=== PATIENT | female | born 1955 ===

== ENCOUNTER 2017-03-25 09:27 | Day surgery (SDC) | payer BC, MEDICARE ==
[2017-03-10 09:53] VITALS: BMI 29.2
[~2017-03-25 09:27] MED LIST: Lactated Ringer's 1,000 ML IV SCH; Sodium Chloride 0.9% 1,000 ML IV SCH
[2017-03-25] MEDS ORDERED: Propofol 10 mg/ml Inj (20 ML) ONE (10:51)
[2017-03-25] MEDS ORDERED: Albuterol HFA 90 mcg/actuation (8 g) ONE (11:12)
[2017-03-25 14:42] VITALS: BP 122/68; PULSE 85; RESP 16; TEMP 97.5; O2SAT 16
== END 2017-03-25 11:30 | disposition home or self-care (01) ==
LOC: ENDO 09:27
PROVIDERS: ATTEND Internal Medicine Gastroenterology
DX: K31.7 Polyp of stomach and duodenum (principal); K44.9 Diaphragmatic hernia without obstruction or gangrene; K29.50 Unspecified chronic gastritis without bleeding; D12.5 Benign neoplasm of sigmoid colon; K57.30 Diverticulosis of large intestine without perforation or abscess without bleeding; K64.8 Other hemorrhoids; K64.4 Residual hemorrhoidal skin tags; Z85.3 Personal history of malignant neoplasm of breast; K76.0 Fatty (change of) liver, not elsewhere classified; Z90.49 Acquired absence of other specified parts of digestive tract; Z80.41 Family history of malignant neoplasm of ovary; Z80.42 Family history of malignant neoplasm of prostate; J44.9 Chronic obstructive pulmonary disease, unspecified; M81.0 Age-related osteoporosis without current pathological fracture
CPT/HCPCS: 43239; 45380; 45385; 88305; 88312; 88342; J1720; J2001; J2704; J3010; J7040; J7120

== ENCOUNTER 2017-04-07 14:44 | Inpatient (IN) | payer MEDICARE, BC ==
[2017-04-07] MEDS ORDERED: Albuterol-Ipratrop 3 mg / 0.5 (3 ml) UD IH STA (14:54)
--- NOTE | 2017-04-07 15:07 | ED PDOC ---
Arrival/HPI - General Chief Complaint: Shortness Of Breath Time Seen by Provider: 04/07/17 14:53 Historian: Patient - History of Present Illness Time/Duration: < week (x 3 days ) Symptom Onset: Gradual Symptom Course: Unchanged Severity Level: Mild Activities at Onset: Light Context: Sitting, Standing, Walking, Home Past Medical History - Provider Review Nursing Documentation Reviewed: Yes - Infectious Disease Hx of Infectious Diseases: None - Tetanus Immunization Tetanus Immunization: Unknown - Reproductive Menopause: Yes - Cardiac Hx Pacemaker: No - Pulmonary Hx Respiratory Disorders: Yes (COUGH DRY) Hx Asthma: Yes Hx Bronchitis: Yes Hx Chronic Obstructive Pulmonary Disease (COPD): Yes Hx Pneumonia: Yes Other/Comment: breast ca, lung fibrosis - Neurological Hx Paralysis: No - HEENT Hx HEENT Disorder: Yes Hx Cataracts: Yes (BILAT IOL) Hx Deafness: Yes (BILATERAL EARS DECREASED HEARING) - Hematological/Oncological Hx Blood Transfusions: Yes Hx Blood Transfusion Reaction: No - Musculoskeletal/Rheumatological Hx Musculoskeletal Disorders: Yes - Gastrointestinal Hx Gastrointestinal Disorders: Yes Hx Gastroesophageal Reflux: Yes - Psychiatric Hx Physical Abuse: No Hx Substance Use: No - Surgical History Hx Appendectomy: Yes Hx Section: Yes (x2) Hx Cholecystectomy: Yes Hx Joint Replacement: Yes (fatoumata hips) Hx Mastectomy: Yes (L breast mastectomy with reconstruction) Other/Comment: , bladder surgery - Anesthesia Hx Anesthesia Reactions: No - Suicidal Assessment Feels Threatened In Home Enviroment: No Family/Social History - Physician Review Nursing Documentation Reviewed: Yes Family/Social History: No Known Family HX Smoking Status: Never Smoked Hx Alcohol Use: No Hx Substance Use: No Hx Substance Use Treatment: No Allergies/Home Meds Allergies/Adverse Reactions: Allergies No Known Allergies Allergy (Verified 04/07/17 14:55) Home Medications: Home Meds Medication Instructions Recorded Confirmed Montelukast [Singulair] 10 mg PO HS 04/12/15 03/25/17 Albuterol 0.083% [Albuterol 0.083% 3 ml IH Q6 PRN 06/26/15 03/25/17 Inhal Cate (2.5 mg/3 ml) UD] Omeprazole 20 mg PO DAILY 06/26/15 03/25/17 Raloxifene [Evista] 60 mg PO DAILY 06/26/15 03/25/17 Acetylcysteine 20% [Acetylcysteine 20 % INH Q6H 03/10/17 03/25/17 20%] Gabapentin [Neurontin] 100 mg PO TID 03/10/17 03/25/17 Lipase/Protease/Amylase [Zenpep Dr 20,000 units PO DAILY 03/10/17 03/25/17 20,000 Units Capsule] Prednisone [Deltasone] 20 mg PO DAILY 03/10/17 03/25/17 Ipratropium [place] [Ipratropium 2 puff INH Q6H 03/18/17 03/25/17 [place]] Review of Systems - Physician Review All systems were reviewed & negative as marked: Yes - Review of Systems Constitutional: absent: Fevers Respiratory: SOB Cardiovascular: absent: Chest Pain Gastrointestinal: absent: Abdominal Pain Physical Exam Vital Signs Reviewed: Yes Vital Signs Temp Pulse Resp BP Pulse Ox 04/07/17 14:56 100.1 F H 118 H 22 138/68 95 Temperature: Febrile Blood Pressure: Normal Pulse: Tachycardic Respiratory Rate: Normal Appearance: Positive for: Well-Appearing, Non-Toxic, Comfortable Pain Distress: None Mental Status: Positive for: Alert and Oriented X 3 - Systems Exam Head: Present: Atraumatic, Normocephalic Pupils: Present: PERRL Extroacular Muscles: Present: EOMI Conjunctiva: Present: Normal Mouth: Present: Moist Mucous Membranes Neck: Present: Normal Range of Motion Respiratory/Chest: Present: Good Air Exchange, Other (velcro crackles at bases; chronic cough unchanged ). No: Respiratory Distress, Accessory Muscle Use Cardiovascular: Present: Regular Rate and Rhythm, Normal S1, S2. No: Murmurs Abdomen: Present: Normal Bowel Sounds. No: Tenderness, Distention, Peritoneal Signs Back: Present: Normal Inspection Upper Extremity: Present: Normal Inspection. No: Cyanosis, Edema Lower Extremity: Present: Normal Inspection. No: Edema Neurological: Present: GCS=15, CN II-XII Intact, Speech Normal Skin: Present: Warm, Dry, Normal Color. No: Rashes Psychiatric: Present: Alert, Oriented x 3, Normal Insight, Normal Concentration Medical Decision Making ED Course and Treatment: 04/07/17 15:00 Progress Notes: EKG: Ordered, reviewed, and independently interpreted the EKG. Rate : 115 BPM Rhythm : Sinus Tachycardia Interpretation : RBBB; No STEMI. - RAD Interpretation Radiology Orders: 04/07/17 14:54 CHEST PORTABLE [RAD] Stat - Medication Orders Current Medication Orders: Discontinued Medications Albuterol/Ipratropium (Duoneb 3 Mg/0.5 Mg (3 Ml) Ud) 3 ml IH ONCE STA Stop: 04/07/17 14:55 Methylprednisolone (Solu-Medrol) 80 mg IVP STAT STA Stop: 04/07/17 14:55 - Scribe Statement The provider has reviewed the documentation as recorded by the Osorio Ingram Provider Scribe Attestation: All medical record entries made by the Scribe were at my direction and personally dictated by me. I have reviewed the chart and agree that the record accurately reflects my personal performance of the history, physical exam, medical decision making, and the department course for this patient. I have also personally directed, reviewed, and agree with the discharge instructions and disposition. Disposition/Present on Arrival - Present on Arrival History of DVT/PE: No History of Uncontrolled Diabetes: No Urinary Catheter: No History of Decub. Ulcer: No History Surgical Site Infection Following: None - Disposition Forms: [facility] (Kinyarwanda)
[2017-04-07 15:34] LABS: ALB/GLOB RATIO 0.9 (1.1-1.8); ALBUMIN 3.8 g/dL (3.0-4.8); ALT/SGPT 31 U/L (7-56); AST/SGOT 37 U/L (14-36); BLOOD UREA NITROGEN 11 mg/dL (7-21); CALCIUM 9.5 mg/dL (8.4-10.5); GFR AFRICAN-AMERICAN > 60; GFR NON-AFRICAN AMERICAN > 60
[2017-04-07 15:37] LABS: VENOUS BLOOD GAS BASE EXCESS 4.3 mmol/L (0.0-2.0); VENOUS BLOOD GAS PO2 45 mm/Hg (30-55); VENOUS BLOOD PH 7.34 (7.32-7.43)
[2017-04-07 15:45] LABS: BASO # 0.05 K/mm3 (0.0-2.0); BASO % 0.4 % (0.0-3.0); EOS # 0.4 (0.0-0.7); EOS % 3.3 % (1.5-5.0); GRAN # 7.36 (1.4-6.5); GRAN % 57.7 % (50.0-68.0); HEMOGLOBIN 14.2 g/dL (12.0-16.0); LYMPH # 3.5 (1.2-3.4); LYMPH % 27.6 % (22.0-35.0); MEAN CELL VOLUME 88.5 fl (80.0-105.0); MEAN CORPUSCULAR HEMOGLOBIN 29.3 pg (25.0-35.0); MEAN CORPUSCULAR HGB CONC 33.1 g/dl (31.0-37.0); MEAN PLATELET VOLUME 10.2 fl (7.0-11.0); MONO # 1.4 (0.1-0.6); RBC 4.85 10^6/uL (3.5-6.1); RED CELL DISTRIBUTION WIDTH 14.9 % (11.5-14.5); WHITE BLOOD COUNT 12.7 10^3/ul (4.5-11.0)
[2017-04-07 15:52] LABS: B-TYPE NATRIURETIC PEPTIDE 292 pg/mL (0-450); TROPONIN I < 0.01 ng/mL
--- NOTE | 2017-04-07 15:55 | RAD ---
HISTORY: sob COMPARISON: Comparison chest 12/10/2016. FINDINGS: LUNGS: Poor inspiration with low lung volumes, crowded bronchovascular markings and mild bibasilar atelectasis. . Underlying pulmonary fibrosis with areas of bronchiectasis again noted present however the interstitial the changes appear more pronounced ; superimposed pneumonia not excluded. Changes remain more confluent in the lower lung [place] which may in part be due to aforementioned crowded bronchovascular markings and dependent/compressive type atelectasis PLEURA: No significant pleural effusion identified, no pneumothorax apparent. CARDIOVASCULAR: Normal. OSSEOUS STRUCTURES: No significant abnormalities. VISUALIZED UPPER ABDOMEN: Normal. OTHER FINDINGS: None. IMPRESSION: Poor inspiration with low lung volumes, crowded bronchovascular markings and mild bibasilar atelectasis. . Underlying pulmonary fibrosis is present however the interstitial the changes appear more pronounced ; superimposed pneumonia not excluded. Changes remain more confluent in the lower lung [place] which may in part be due to aforementioned crowded bronchovascular markings and dependent/compressive type atelectasis
[2017-04-07] MEDS ORDERED: Piperacill/Tazo 4.5gm in NS 4.5 GM/100 ML BAG IVPB STA (15:56)
[2017-04-07] MEDS ORDERED: Vancomycin 500 mg Inj IVPB STA (15:56)
[2017-04-07] MEDS ORDERED: Vancomycin 1gm in NS 250ml 1 GM/250 ML BAG IVPB STA (16:01)
--- NOTE | 2017-04-07 17:37 | CT ---
PROCEDURE: CT Chest without contrast HISTORY: Shortness of breath and cough. History of fibrosis ; evaluate for pneumonia COMPARISON: None. TECHNIQUE: Contiguous axial images were obtained through the chest without intravenous contrast enhancement. Sagittal and coronal reconstructions were performed. Radiation dose (DLP): 355.1 mGy-cm. This CT exam was performed using one or more of the following dose reduction techniques: Automated exposure control, adjustment of the mA and/or kV according to patient size, and/or use of iterative reconstruction technique. FINDINGS: LUNGS: Demonstrated is extensive diffuse interstitial fibrosis and bronchiectasis most severely affecting the lower lung zones. Scattered nodular opacities again noted . The appearance is relatively stable when compared with the prior exam however the possibility of superimposed interstitial pneumonia cannot be excluded. No large dense focal consolidations are identified. . MEDIASTINUM: Heart size within range of normal. Small pericardial effusion present. The ascending thoracic aorta measures approximately 2.8 cm and descending thoracic aorta measures approximately 2.2 cm. Three-vessel arch. Pulmonary trunk measures approximately 2.6 cm. Multiple mediastinal lymph nodes are present the largest right paratracheal lymph node measuring approximately 15 mm. Central airways are midline and patent. No endobronchial lesions. Small to medium size hiatal hernia with wall thickening of the distal esophagus that could be due to protrusion of gastric mucosa however esophagitis not excluded. . PLEURA: No pleural fluid. No pneumothorax. BONES: Mild multilevel degenerative spondylosis of the thoracic spine. UPPER ABDOMEN: Post cholecystectomy changes. OTHER FINDINGS: None. IMPRESSION: Extensive interstitial fibrosis and bronchiectasis with scattered nodular opacities. The possibility with superimposed pneumonia cannot be excluded on this exam. Overall appearance is relatively stable however.
[2017-04-07] MEDS ORDERED: Albuterol-Ipratrop 3 mg / 0.5 (3 ml) UD IH PRN (17:40)
[2017-04-07] MEDS ORDERED: guaiFENesin 100 mg/5 ml Syrup UD PO PRN (17:41)
[2017-04-07] MEDS: Enoxaparin 40 mg Syringe SC SCH (17:52)
--- NOTE | 2017-04-07 17:57 | CP.PCM.HP ---
<NunnCamron - Last Filed: 04/07/17 18:13> History of Present Illness - History of Present Illness History of Present Illness: 62 year old female with past medical history of pulmonary fibrosis, Breast CA status post left breast mastectomy, chemo, radiation, asthma, COPD, bronchitis, pneumonia presents to the ED because of 2 days of worsening shortness of breath. History was obtained bedside with help of . Patient states she has had a chronic cough for several years but the last 2 days she has experienced worsened cough and shortness of breath. She has been coughing up yellow sputum. Patient states she is able to walk a little bit but the past couple of days she is unable to even make it to the bathroom from her bedroom. She has not taken anything for the cough or shortness of breath but is on oxygen at home. She states she was around her daughter who has had sore throat. Patient states that along with the cough she has pain in her chest. In addition she complains of a runny nose. She denies any nausea, vomiting, diarrhea, recent travel, sore throat, abdominal pain, or any other complaints at this time. PMD: Dr. 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 absent: Chills, Excessive Sweating, Night Sweats - EENT Eyes: absent: Blurred Vision, Change in Vision Ears: absent: Tinnitus, Dizziness Nose/Mouth/Throat: Nasal Discharge. absent: Sore Throat Additional comments: Cough - Cardiovascular Cardiovascular: Dyspnea, Dyspnea on Exertion. absent: Chest Pain at Rest - Respiratory Respiratory: Cough, Dyspnea on Exertion Additional comments: pain when coughing - Gastrointestinal Gastrointestinal: absent: Diarrhea, Nausea, Vomiting - Genitourinary Genitourinary: absent: Difficulty Urinating, Dysuria - Musculoskeletal Musculoskeletal: absent: Joint Swelling - Neurological Neurological: absent: Dizziness, Numbness, Tingling Past Patient History - Infectious Disease Hx of Infectious Diseases: None - Tetanus Immunizations Tetanus Immunization: Unknown - Past Medical History & Family History Past Medical History?: Yes - Past Social History Smoking Status: Never Smoked - CARDIAC Hx Pacemaker: No - PULMONARY Hx Respiratory Disorders: Yes (COUGH DRY) Hx Asthma: Yes Hx Bronchitis: Yes Hx Chronic Obstructive Pulmonary Disease (COPD): Yes Hx Pneumonia: Yes Other/Comment: breast ca, lung fibrosis - NEUROLOGICAL Hx Paralysis: No - HEENT Hx HEENT Problems: Yes Hx Cataracts: Yes (BILAT IOL) Hx Deafness: Yes (BILATERAL EARS DECREASED HEARING) - HEMATOLOGICAL/ONCOLOGICAL Hx Blood Transfusions: Yes Hx Blood Transfusion Reaction: No - MUSCULOSKELETAL/RHEUMATOLOGICAL Hx Musculoskeletal Disorders: Yes - GASTROINTESTINAL Hx Gastrointestinal Disorders: Yes Hx Gastroesophageal Reflux: Yes - PSYCHIATRIC Hx Physical Abuse: No Hx Substance Use: No - SURGICAL HISTORY Hx Appendectomy: Yes Hx Section: Yes (x2) Hx Cholecystectomy: Yes Hx Joint Replacement: Yes (fatoumata hips) Hx Mastectomy: Yes (L breast mastectomy with reconstruction) Other/Comment: , bladder surgery - ANESTHESIA Hx Anesthesia Reactions: No Meds Allergies/Adverse Reactions: Allergies Allergy/AdvReac Type Severity Reaction Status Date / Time No Known Allergies Allergy Verified 04/07/17 14:55 Physical Exam - Constitutional Appears: No Acute Distress Additional comments: fatigued - Head Exam Head Exam: ATRAUMATIC, NORMAL INSPECTION, NORMOCEPHALIC - Eye Exam Eye Exam: EOMI, Normal appearance - ENT Exam ENT Exam: Mucous Membranes Moist, Normal Exam - Neck Exam Neck exam: Negative for: Lymphadenopathy, Tenderness - Respiratory Exam Respiratory Exam: Wheezes - Cardiovascular Exam Cardiovascular Exam: REGULAR RHYTHM, +S1, +S2 - GI/Abdominal Exam GI & Abdominal Exam: Soft. absent: Distended, Tenderness - Extremities Exam Extremities exam: Positive for: normal inspection, pedal pulses present. Negative for: pedal edema - Neurological Exam Neurological exam: Alert, Oriented x3 - Skin Skin Exam: Intact, Normal Color Results - Vital Signs Recent Vital Signs: Last Vital Signs Temp 100.1 F H 04/07/17 14:56 Pulse 104 H 04/07/17 17:36 Resp 18 04/07/17 17:36 BP 126/69 04/07/17 17:36 Pulse Ox 98 04/07/17 17:36 - Labs Result Diagrams: 04/07/17 15:00 04/07/17 15:00 Assessment & Plan - Assessment and Plan (Free Text) Assessment: 62 year old female with past medical history of pulmonary fibrosis, Breast CA status post left breast mastectomy, chemo, radiation, asthma, COPD, bronchitis, pneumonia presents to the ED because of 2 days of worsening shortness of breath. patient admitted and will be treated for Community acquired Pneumonia. Plan: 1. Pneumonia-Comunity Acquired -Chest xray: chronic fibrosis with underlying pneumonia -EKG pending official read -Temp 100.1 -Leukocytosis 12.7 -procalc pending -Rocephin and Azithromycin continue -Rapid Flu negative -Legionella pending -Strept Pneumonia pending -sputum cultures pending -blood cultures pending -Robitussin -continue home oxygen -Pulm consulted- Dr. Carpenter-follow recs 2. Pulmonary Fibrosis/COPD-chronic -continue home oxygen -Pulm consulted- Dr. [id number] recs -Solumedrol given in ED -continue solumedrol 40 BID -continue nebulizers PRN -continue home montelukast, singulair 3. Osteoporosis-chronic -continue home raloxifene 4. GI/DVT Prophylaxis -Lovenox -Protonix <Anabelle Stearns - Last Filed: 04/08/17 14:14> Results - Vital Signs Recent Vital Signs: Last Vital Signs Temp 97.9 F 04/08/17 07:00 Pulse 65 04/08/17 07:00 Resp 20 04/08/17 07:00 BP 103/50 L 04/08/17 07:00 Pulse Ox 100 04/08/17 07:00 - Labs Result Diagrams: 04/08/17 09:50 04/08/17 09:50 Labs: Laboratory Results - last 24 hr 04/07/17 04/08/17 04/08/17 21:07 09:50 09:50 WBC 12.5 H RBC 4.57 Hgb 13.2 Hct 40.0 MCV 87.5 MCH 28.9 MCHC 33.0 RDW 14.2 Plt Count 237 MPV 8.9 Sodium 139 Potassium 4.2 Chloride 106 Carbon Dioxide 24 Anion Gap 13 BUN 14 Creatinine 0.6 L Est GFR ( Amer) > 60 Est GFR (Non-Af Amer) > 60 Random Glucose 252 H Calcium 9.1 Phosphorus 2.7 Magnesium 2.0 Procalcitonin 0.15 L Attending/Attestation - Attestation I have personally seen and examined this patient.: Yes I have fully participated in the care of the patient.: Yes I have reviewed all pertinent clinical information: Yes Notes (Text): I have seen and examined the patient at bedside. Agree with the above note with the following additions/ exceptions: Briefly this is 62 year old female with history of pulmonary fibrosis, Breast CA status post left breast mastectomy, chemo, radiation, asthma, COPD, bronchitis, pneumonia who came for evaluation of shortness of breath, cough, plegm production amd dyspnea on exertion. Patient has leukocytosis. CXR revealed chronic fibrosis with underlying pneumonia. Will do further work up including procal, legionella, strep pneumonia and cultures. Will start rocephin and zithro. CT chest pending. Will consult pulmonary. Continue IV solumedrol. Upon discharge patient will follow up with Dr Patel. Dr Anabelle Stearns
[2017-04-07 18:54] VITALS: BMI 36.9
[2017-04-07] MEDS ORDERED: Influenza Vaccine 60 mcg/0.5 mL SYR (4YR UP) IM ONE (18:55)
[2017-04-07] MEDS ORDERED: Pneumococcal 23-Valent Vaccine IM ONE (18:55)
[2017-04-07] MEDS: Acetylcysteine 20% Inhal Soln (4ml) INH SCH (20:06)
[2017-04-07] MEDS: Ipratropium 0.02% Inhal Soln (0.5 mg/2.5 ml) UD IH SCH (20:36)
[2017-04-07] MEDS: cefTRIAXone 2 GM IN NS 2 GM/100 ML BAG IVPB SCH (21:27)
[2017-04-07] MEDS: Azithromycin 500MG/NS 250ml 500 MG/250 ML BAG IVPB SCH (21:28)
[2017-04-08] MEDS: Acetylcysteine 20% Inhal Soln (4ml) INH SCH ×4 (01:28→20:15)
[2017-04-08] MEDS: MethylPREDNISolone 40 mg Vial IVP SCH ×3 (06:39→22:33)
[2017-04-08] MEDS: Pantoprazole 40 mg EC Tab PO SCH (06:39)
[2017-04-08] MEDS: Ipratropium 0.02% Inhal Soln (0.5 mg/2.5 ml) UD IH SCH ×3 (07:16→20:15)
[2017-04-08] MEDS: cefTRIAXone 2 GM IN NS 2 GM/100 ML BAG IVPB SCH (09:46)
[2017-04-08] MEDS: Enoxaparin 40 mg Syringe SC SCH (09:47)
[2017-04-08] MEDS: PROTEASE PO SCH (09:48)
[2017-04-08] MEDS: AMYLASE PO SCH (09:48)
[2017-04-08] MEDS: LIPASE PO SCH (09:48)
[2017-04-08] MEDS: [UNRECOGNIZED DRUG - OTHER] PO SCH (09:48)
--- NOTE | 2017-04-08 09:53 | CARD ---
APPROVED REPORT EKG Measurement Heart [id number] <Conclusion> Sinus tachycardia Right bundle branch block Abnormal ECG
[2017-04-08 10:00] LABS: HEMOGLOBIN 13.2 g/dL (12.0-16.0); MEAN CELL VOLUME 87.5 fl (80.0-105.0); MEAN CORPUSCULAR HEMOGLOBIN 28.9 pg (25.0-35.0); MEAN PLATELET VOLUME 8.9 fl (7.0-11.0); RBC 4.57 10^6/uL (3.5-6.1); RED CELL DISTRIBUTION WIDTH 14.2 % (11.5-14.5); WHITE BLOOD COUNT 12.5 10^3/ul (4.5-11.0)
[2017-04-08 10:22] LABS: BLOOD UREA NITROGEN 14 mg/dL (7-21)
[2017-04-08 10:23] LABS: CALCIUM 9.1 mg/dL (8.4-10.5); GFR AFRICAN-AMERICAN > 60; GFR NON-AFRICAN AMERICAN > 60
[2017-04-08] MEDS: Azithromycin 500MG/NS 250ml 500 MG/250 ML BAG IVPB SCH (10:53)
[2017-04-09] MEDS: Acetylcysteine 20% Inhal Soln (4ml) INH SCH ×3 (02:21→13:27)
[2017-04-09] MEDS: Ipratropium 0.02% Inhal Soln (0.5 mg/2.5 ml) UD IH SCH ×3 (02:22→13:27)
--- NOTE | 2017-04-09 03:11 | CON ---
DATE: 04/08/2017 PULMONARY CONSULTATION REFERRING PHYSICIAN: Anabelle Stearns MD REASON FOR CONSULTATION: Cough, shortness of breath, and chronic lung disease. HISTORY OF PRESENT ILLNESS: This is a 62-year-old female with known history of interstitial lung disease, pulmonary fibrosis, history of breast cancer, and left breast lumpectomy and been on chemoradiation therapy in the past. She does have a chronic obstructive lung disease, came into Emergency Room with cough and shortness of breath. No hemoptysis or emesis. No hematuria. No diarrhea reported. PAST MEDICAL HISTORY: Chronic obstructive lung disease, history of pulmonary fibrosis, breast cancer, history of mastectomy. Has also been on chemo and breast radiation therapy. She also had sleep apnea syndrome. ALLERGIES: NONE KNOWN. SOCIAL HISTORY: No smoking or alcohol use. FAMILY HISTORY: No significant cardiopulmonary disease reported. MEDICATIONS: She is on Mucomyst 20% inhaled q. 6 hours., Atrovent 0.5 mg q. 6 hours. and Evista 60 mg daily. Also getting lipase/pancreas 20,000 units daily, Lovenox 40 mg daily, Neurontin 100 mg three times a day, Protonix 40 mg daily, guaifenesin 100 mg q. 4 hours. p.r.n., Rocephin 2 grams daily, Singulair 10 mg daily, Solu-Medrol 40 mg q. 12 hours. and Zithromax 500 mg daily. REVIEW OF SYSTEMS: No headache and no rhinitis. Has a cough, sputum production, and short of breath. No nausea, no vomiting, and no diarrhea. No leg pain or leg swelling. PHYSICAL EXAMINATION: GENERAL: Lying in the bed, in no acute distress. VITAL SIGNS: Temperature is 98, heart rate is 65, respiratory rate is 20, blood pressure is 103/50, and pulse oximetry of 100% on 2 liters nasal cannula. HEENT: Moist mucous membranes. Crowded airway. NECK: Supple. No JVD. LUNGS: Have bilateral crackles and wheezing. HEART: S1 and S2. GASTROINTESTINAL: Abdomen is soft and nontender. No organomegaly. EXTREMITIES: There is no edema. NEUROLOGIC: Awake, alert and follows simple command. LABORATORY DATA: Shows hemoglobin of 13.2, hematocrit of 40.0, WBC of 12.2, and platelet is 237. ABG done yesterday shows pH of 7.34, pCO2 of 59 and O2 of 45. Sodium of 139, potassium of 4.2, chloride of 106, bicarbonate of 24, BUN of 14, and creatinine of 0.6. Glucose is 252, calcium is 9.1, phosphorus is 2.7, magnesium is 2.0, and procalcitonin is 0.15. Influenza A and B been negative. DIAGNOSTIC DATA: CAT scan of the chest done today that shows extensive interstitial fibrosis with bronchiectasis and scattered nodular obesity, pneumonia cannot be ruled out. IMPRESSION AND PLAN: She has a chronic obstructive lung disease, sleep apnea syndrome, history of breast cancer in the past and have a radiation and chemotherapy, so, part of the damage to the lung probably is secondary to radiation therapy in the remote past. We will continue IV and inhaled bronchodilator. Continue antibiotics. May add a continuous positive airway pressure, gastric and deep venous thrombosis prophylaxis. Aspiration precaution. Thank you and we will follow with you. Sav Carpenter MD
[2017-04-09] MEDS: Pantoprazole 40 mg EC Tab PO SCH (06:18)
--- NOTE | 2017-04-09 06:37 | CP.PCM.PN ---
Subjective - Date & Time of Evaluation Date of Evaluation: 04/09/17 Time of Evaluation: 06:40 - Subjective Subjective: Patient seen and examined at bedside in no acute distress. Patient states shortness of breath has resolved and has no complaints at this time. Denies shortness of breath, palpitations, chest pain, abdominal pain, nausea, vomiting , diarrhea. Objective - Vital Signs/Intake and Output Vital Signs (last 24 hours): Temp Pulse Resp BP Pulse Ox 97.9 F 65 20 103/50 L 100 04/08/17 07:00 04/08/17 07:00 04/08/17 07:00 04/08/17 07:00 04/08/17 07:00 Intake and Output: 04/08/17 04/09/17 18:59 06:59 Intake Total 360 Balance 360 - Medications Medications: Current Medications Acetylcysteine (Acetylcysteine 20%) 2 ml INH [id number] [facility] Last Admin: 04/09/17 02:21 Dose: 2 ml Enoxaparin Sodium (Lovenox) 40 mg SC DAILY [facility] PRN Reason: Protocol Last Admin: 04/08/17 09:47 Dose: 40 mg Gabapentin (Neurontin) 100 mg PO TID [facility] PRN Reason: Protocol Last Admin: 04/08/17 17:06 Dose: 100 mg Guaifenesin (Robitussin) 100 mg PO Q4H PRN PRN Reason: Cough Ceftriaxone Sodium (Rocephin 2 Gm Ivpb) 2 gm in 100 mls @ 100 mls/hr IVPB DAILY [facility] PRN Reason: Protocol Last Admin: 04/08/17 09:46 Dose: 100 mls/hr Azithromycin (Zithromax 500mg In Ns) 500 mg in 250 mls @ 167 mls/hr IVPB DAILY [facility] PRN Reason: Protocol Last Admin: 04/08/17 10:53 Dose: 167 mls/hr Ipratropium [place] (Atrovent) 0.5 mg IH [id number] [facility] Last Admin: 04/09/17 02:22 Dose: 0.5 mg Methylprednisolone (Solu-Medrol) 40 mg IVP Q12 [facility] Last Admin: 04/08/17 22:33 Dose: 40 mg Montelukast Sodium (Singulair) 10 mg PO HS [facility] Last Admin: 04/08/17 22:33 Dose: 10 mg Non-Formulary Medication (Lipase/Protease/Amylase [Nica Dr 20,000 Unit Capsule ]) 20,000 units PO DAILY [facility] Last Admin: 04/08/17 09:48 Dose: Not Given Pantoprazole Sodium (Protonix Ec Tab) 40 mg PO 0600 [facility] Last Admin: 04/09/17 06:18 Dose: 40 mg Raloxifene HCl (Evista) 60 mg PO DAILY [facility] Last Admin: 04/08/17 09:47 Dose: 60 mg Zolpidem Tartrate (Ambien) 5 mg PO HS PRN; Protocol PRN Reason: Insomnia - Labs Labs: 04/08/17 09:50 04/08/17 09:50 - Constitutional Appears: Non-toxic, No Acute Distress - Head Exam Head Exam: ATRAUMATIC, NORMAL INSPECTION, NORMOCEPHALIC - Eye Exam Eye Exam: EOMI, Normal appearance - ENT Exam ENT Exam: Mucous Membranes Moist, Normal Exam - Respiratory Exam Respiratory Exam: Wheezes, NORMAL BREATHING PATTERN - Cardiovascular Exam Cardiovascular Exam: REGULAR RHYTHM, +S1, +S2 - GI/Abdominal Exam GI & Abdominal Exam: Soft, Normal Bowel Sounds - Neurological Exam Neurological Exam: Alert, Awake, Oriented x3 - Psychiatric Exam Psychiatric exam: Normal Affect, Normal Mood - Skin Skin Exam: Intact, Normal Color, Warm Assessment and Plan - Assessment and Plan (Free Text) Assessment: 62 year old female with past medical history of pulmonary fibrosis, Breast CA status post left breast mastectomy, chemo, radiation, asthma, COPD, bronchitis, pneumonia presents to the ED because of 2 days of worsening shortness of breath. Patient admitted and will be treated for Community acquired Pneumonia. Plan: 1. Pneumonia-Comunity Acquired -Chest xray: chronic fibrosis with underlying pneumonia -Temp 100.1 upon admission, afebrile 24 hours -Leukocytosis 12.7 initially, now 12.5 -procalcitonin 0.15 -Rocephin and Azithromycin continue -Rapid Flu negative -Legionella pending -Strept Pneumonia pending -sputum cultures pending -blood cultures; no growth after 24 hours -Robitussin -continue home oxygen -Pulm consulted- Dr. Carpenter; follow recommendations 2. Pulmonary Fibrosis/COPD-chronic -continue home oxygen -Pulm consulted- Dr. Carpenter; follow recommendations -Solumedrol given in ED -continue solumedrol 40 BID -continue nebulizers PRN -continue home montelukast, singulair 3. Osteoporosis-chronic -continue home raloxifene 4. GI/DVT Prophylaxis -Lovenox -Protonix
[2017-04-09 07:41] LABS: BASO # 0.01 K/mm3 (0.0-2.0); BASO % 0.1 % (0.0-3.0); GRAN # 11.47 (1.4-6.5); GRAN % 79.8 % (50.0-68.0); HEMOGLOBIN 13.4 g/dL (12.0-16.0); LYMPH # 2.2 (1.2-3.4); LYMPH % 15.4 % (22.0-35.0); MEAN CELL VOLUME 88.1 fl (80.0-105.0); MEAN CORPUSCULAR HEMOGLOBIN 28.5 pg (25.0-35.0); MEAN CORPUSCULAR HGB CONC 32.4 g/dl (31.0-37.0); MONO # 0.7 (0.1-0.6); MONO % 4.7 % (1.0-6.0); RBC 4.7 10^6/uL (3.5-6.1); RED CELL DISTRIBUTION WIDTH 14.1 % (11.5-14.5); WHITE BLOOD COUNT 14.4 10^3/ul (4.5-11.0)
[2017-04-09 07:51] LABS: ALB/GLOB RATIO 0.9 (1.1-1.8); ALBUMIN 3.6 g/dL (3.0-4.8); ALT/SGPT 22 U/L (7-56); AST/SGOT 27 U/L (14-36); BLOOD UREA NITROGEN 13 mg/dL (7-21); CALCIUM 9.3 mg/dL (8.4-10.5); GFR AFRICAN-AMERICAN > 60; GFR NON-AFRICAN AMERICAN > 60
[2017-04-09 08:01] VITALS: O2SAT 95
[2017-04-09] MEDS: MethylPREDNISolone 40 mg Vial IVP SCH (09:13)
[2017-04-09] MEDS: cefTRIAXone 2 GM IN NS 2 GM/100 ML BAG IVPB SCH (09:13)
[2017-04-09] MEDS: AMYLASE PO SCH (09:14)
[2017-04-09] MEDS: [UNRECOGNIZED DRUG - OTHER] PO SCH (09:14)
[2017-04-09] MEDS: PROTEASE PO SCH (09:14)
[2017-04-09] MEDS: Enoxaparin 40 mg Syringe SC SCH (09:14)
[2017-04-09] MEDS: LIPASE PO SCH (09:14)
[2017-04-09] MEDS: Azithromycin 500MG/NS 250ml 500 MG/250 ML BAG IVPB SCH (09:56)
--- NOTE | 2017-04-09 16:32 | IP.NPCORE ---
Pneumonia Progress Notes - Oxygenation Assessment (REQUIRED) O2 Saturation: 95 Oxygen Delivery Method: Room Air Date: 04/09/17 Documented P02: No - Blood Cultures (REQUIRED) Culture drawn: Yes Date:: 04/07/17 Time:: 21:00 - Initial Antibiotic Initial Antibiotic given within Four Hours:: Yes Date:: 04/07/17 Time:: 15:55 - Appropriate Antibiotic Appropriate Antibiotic within 24 hours of Admission:: Yes Date:: 04/07/17 Current Antibiotic: Rocephin 2 gm IV daily - Pneumonia Vaccine Pneumonia Vaccine: No (patient refused) - Smoking Cessation Smoking Cessation counseling provided:: No Ex-Smoker (has not smoked in the last 12 months): No Current Smoker - smoking cessation education provided: No
[2017-04-09 17:08] VITALS: BP 140/75; PULSE 92; RESP 16; TEMP 98
--- NOTE | 2017-04-09 19:48 | CP.PCM.DIS ---
Provider - Provider Date of Admission: 04/07/17 16:12 Attending physician: Anabelle Stearns MD Hospital Course - Lab Results Lab Results: Micro Results 04/07/17 21:07 Blood-Venous Blood Culture - Preliminary NO GROWTH AFTER 24 HOURS 04/07/17 21:07 Blood-Venous Blood Culture - Preliminary NO GROWTH AFTER 24 HOURS Most Recent Lab Values WBC 14.4 10^3/ul (4.5-11.0) H 04/09/17 07:10 RBC 4.70 10^6/uL (3.5-6.1) 04/09/17 07:10 Hgb 13.4 g/dL (12.0-16.0) 04/09/17 07:10 Hct 41.4 % (36.0-48.0) 04/09/17 07:10 MCV 88.1 fl (80.0-105.0) 04/09/17 07:10 MCH 28.5 pg (25.0-35.0) 04/09/17 07:10 MCHC 32.4 g/dl (31.0-37.0) 04/09/17 07:10 RDW 14.1 % (11.5-14.5) 04/09/17 07:10 Plt Count 253 10^3/uL (120.0-450.0) 04/09/17 07:10 MPV 9.0 fl (7.0-11.0) 04/09/17 07:10 Gran % 79.8 % (50.0-68.0) H 04/09/17 07:10 Lymph % (Auto) 15.4 % (22.0-35.0) L 04/09/17 07:10 [place] % (Auto) 4.7 % (1.0-6.0) 04/09/17 07:10 Eos % (Auto) 0.0 % (1.5-5.0) L 04/09/17 07:10 Baso % (Auto) 0.1 % (0.0-3.0) 04/09/17 07:10 Gran # 11.47 (1.4-6.5) H 04/09/17 07:10 Lymph # 2.2 (1.2-3.4) 04/09/17 07:10 [place] # 0.7 (0.1-0.6) H 04/09/17 07:10 Eos # 0.0 (0.0-0.7) 04/09/17 07:10 Baso # 0.01 K/mm3 (0.0-2.0) 04/09/17 07:10 pO2 45 mm/Hg (30-55) 04/07/17 15:00 VBG pH 7.34 (7.32-7.43) 04/07/17 15:00 VBG pCO2 59.0 (40-60) 04/07/17 15:00 VBG HCO3 31.8 mmol/l (21-28) H 04/07/17 15:00 VBG Total CO2 33.6 mmol.L (22-28) H 04/07/17 15:00 VBG O2 Sat (Calc) 87.3 % (40-65) H 04/07/17 15:00 VBG Base Excess 4.3 mmol/L (0.0-2.0) H 04/07/17 15:00 VBG Potassium 5.8 mmol/L (3.6-5.2) H 04/07/17 15:00 Sodium 137.0 mmol/L (132-148) 04/07/17 15:00 Chloride 103.0 mmol/L (98-107) 04/07/17 15:00 Glucose 94 mg/dl (65-105) 04/07/17 15:00 Lactate 1.4 mmol/L (0.7-2.1) 04/07/17 15:00 FiO2 21.0 % 04/07/17 15:00 Sodium 142 mmol/L (132-148) 04/09/17 07:10 Potassium 4.5 mmol/L (3.6-5.0) 04/09/17 07:10 Chloride 107 mmol/L (98-107) 04/09/17 07:10 Carbon Dioxide 28 mmol/L (21-33) 04/09/17 07:10 Anion Gap 12 (10-20) 04/09/17 07:10 BUN 13 mg/dL (7-21) 04/09/17 07:10 Creatinine 0.6 mg/dl (0.7-1.2) L 04/09/17 07:10 Est GFR ( Amer) > 60 04/09/17 07:10 Est GFR (Non-Af Amer) > 60 04/09/17 07:10 Random Glucose 143 mg/dL (70-110) H 04/09/17 07:10 Calcium 9.3 mg/dL (8.4-10.5) 04/09/17 07:10 Phosphorus 2.7 mg/dL (2.5-4.5) 04/08/17 09:50 Magnesium 2.0 mg/dL (1.7-2.2) 04/08/17 09:50 Total Bilirubin 0.2 mg/dL (0.2-1.3) 04/09/17 07:10 AST 27 U/L (14-36) 04/09/17 07:10 ALT 22 U/L (7-56) 04/09/17 07:10 Alkaline Phosphatase 79 U/L (38-126) 04/09/17 07:10 Troponin I < 0.01 ng/mL 04/07/17 15:00 NT-Pro-B Natriuret Pep 292 pg/mL (0-450) 04/07/17 15:00 Total Protein 7.3 g/dL (5.8-8.3) 04/09/17 07:10 Albumin 3.6 g/dL (3.0-4.8) 04/09/17 07:10 Globulin 3.8 gm/dL 04/09/17 07:10 Albumin/Globulin Ratio 0.9 (1.1-1.8) L 04/09/17 07:10 Procalcitonin 0.15 NG/ML (0.19-0.49) L 04/07/17 21:07 Venous Blood Potassium 5.8 mmol/L (3.6-5.2) H 04/07/17 15:00 Influenza Typ A,B (EIA) Negative for flu a/b (NEGATIVE) 04/07/17 15:50 Discharge Exam - Head Exam Head Exam: ATRAUMATIC, NORMAL INSPECTION, NORMOCEPHALIC Discharge Plan - Discharge Medications Prescriptions: Budesonide [Pulmicort Flexhaler] 180 mcg IH BID 14 Days #14 ml Doxycycline Hyclate 100 mg PO Q12 10 Days #20 capsule Methylprednisolone [Medrol Dose Pack (21 tabs)] See Taper PO DAILY #21 mg Promethazine DM [Phenergan DM Syrup] 5 ml PO Q6 7 Days cup - Follow Up Plan Condition: GOOD Disposition: HOME/ ROUTINE Instructions: Pneumococcal Vaccine for Adults (DC), Influenza Vaccine (DC), Bacterial Pneumonia (DC), Dyspnea (GEN) Additional Instructions: Follow up with primary care physician Dr. Patel on Friday Follow up with your retail area manager Dr. Mckeon within 1 week. Contact info: + [phone] Continue taking medications as prescribed Please Take breathing treatments as direct If having any increased shortness of breath or worsening of symptoms please go to nearest ER
--- NOTE | 2017-04-09 23:31 | PN ---
DATE: 04/09/2017 PULMONARY PROGRESS NOTE REFERRING PHYSICIAN: Anabelle Stearns MD SUBJECTIVE: She is lying in the bed, feels much better, decreased cough, decreased shortness of breath. No nausea, no vomiting or no diarrhea. No leg pain or leg swelling. PHYSICAL EXAMINATION: GENERAL: In no acute distress. VITAL SIGNS: Temperature is 98, heart rate is 92, respiratory rate is 16, blood pressure is 140/75 and pulse oximetry is 95% on nasal cannula. HEENT: Moist mucous membranes. Crowded airway. NECK: Supple. No JVD. LUNGS: Has crackles and rhonchi. HEART: S1 and S2. ABDOMEN: Soft and nontender. No organomegaly. EXTREMITIES: No edema. NEUROLOGIC: Awake, alert and follow simple commands. MEDICATIONS: Reviewed and noted. No new changes and medications reported since yesterday. LABORATORY DATA: Reviewed. Hemoglobin 13.4, hematocrit 41.4, WBC is 14 and platelet count is 253. Sodium 142, potassium 4.5, chloride 107, bicarbonate 28, BUN 13, creatinine 0.6, glucose 143 and calcium 9.3. AST 27, ALT 22, alk phos is 79 and albumin is 3.6. Microbiology blood cultures has been negative. IMPRESSION AND PLAN: Chronic obstructive lung disease, pulmonary fibrosis, interstitial lung disease, history of breast cancer requiring radiation and chemotherapy, sleep apnea syndrome. Spoke to medical transport specialist. The patient being discharged home on tapered dose of steroids, antibiotics. Continue continuous positive airway pressure while sleeping. The patient is steroid dependent. Need followup pulmonary function tests. Thank you and we will follow with you. Sav Carpenter MD
== END 2017-04-09 18:00 | disposition home or self-care (01) | DRG 194 ==
LOC: ED 14:44 → ERH 16:12 → 5RNO 18:13
PROVIDERS: ADMIT Hospitalist; ATTEND Hospitalist
PROC: 3E0F7GC Introduction of Other Therapeutic Substance into Respiratory Tract, Via Natural or Artificial Opening (ICD-10-PCS; principal; 2017-04-07)
DX: J18.9 Pneumonia, unspecified organism (principal); J44.0 Chronic obstructive pulmonary disease with (acute) lower respiratory infection; J84.10 Pulmonary fibrosis, unspecified; Z99.81 Dependence on supplemental oxygen; K21.9 Gastro-esophageal reflux disease without esophagitis; G47.30 Sleep apnea, unspecified; M81.0 Age-related osteoporosis without current pathological fracture; H91.90 Unspecified hearing loss, unspecified ear; Z85.3 Personal history of malignant neoplasm of breast; Z90.12 Acquired absence of left breast and nipple; Z92.3 Personal history of irradiation; Z92.21 Personal history of antineoplastic chemotherapy; Z79.52 Long term (current) use of systemic steroids; Z90.49 Acquired absence of other specified parts of digestive tract; Z96.643 Presence of artificial hip joint, bilateral

== ENCOUNTER 2017-06-02 10:48 | Day surgery (SDC) | payer MEDICARE, BC ==
[2017-05-26 11:35] VITALS: BMI 30.5
[2017-06-02 11:30] LABS: BASO # 0.05 K/mm3 (0.0-2.0); BASO % 0.2 % (0.0-3.0); EOS # 0.5 (0.0-0.7); EOS % 2.3 % (1.5-5.0); GRAN # 11.81 (1.4-6.5); GRAN % 52.2 % (50.0-68.0); HEMOGLOBIN 14.5 g/dL (12.0-16.0); LYMPH # 8.6 (1.2-3.4); LYMPH % 38.1 % (22.0-35.0); MEAN CELL VOLUME 88.1 fl (80.0-105.0); MEAN CORPUSCULAR HEMOGLOBIN 28.7 pg (25.0-35.0); MEAN CORPUSCULAR HGB CONC 32.5 g/dl (31.0-37.0); MEAN PLATELET VOLUME 9.4 fl (7.0-11.0); MONO # 1.6 (0.1-0.6); MONO % 7.2 % (1.0-6.0); RBC 5.06 10^6/uL (3.5-6.1); RED CELL DISTRIBUTION WIDTH 15.3 % (11.5-14.5); WHITE BLOOD COUNT 22.6 10^3/ul (4.5-11.0)
[2017-06-02 12:14] LABS: BLOOD UREA NITROGEN 13 mg/dL (7-21); CALCIUM 9.3 mg/dL (8.4-10.5); GFR AFRICAN-AMERICAN > 60; GFR NON-AFRICAN AMERICAN > 60
[2017-06-02 12:24] LABS: INR 1.07 (0.93-1.08); PROTHROMBIN TIME 12.3 SECONDS (9.4-12.5)
[2017-06-02] MEDS ORDERED: Lidocaine 1% Inj (20ml) ONE ×2 (13:09→16:12)
[2017-06-02] MEDS ORDERED: Midazolam 2 MG/2 ML VIAL ONE (13:09)
[2017-06-02] MEDS ORDERED: Oxycodone/Acetaminophen 5/325 mg Tab PO PRN (14:05)
--- NOTE | 2017-06-02 14:39 | CT ---
PROCEDURE: CT guided left lung biopsy. HISTORY: Breast CA. Bilateral interstitial and airspace disease. Evaluate for lymphangitis spread of tumor versus pneumonitis. PHYSICIAN(S): Ck Garcia MD. TECHNIQUE: The relative risks and indications of the procedure were explained to the patient and her and consent obtained. The patient was placed supine on the CT scanner and preliminary images through the mid lungs obtained. Conscious sedation and monitoring were provided throughout the procedure by a nurse. Bilateral interstitial and airspace disease is noted. An area containing both airspace and interstitial opacities was selected in the lingula for biopsy. A oblique left lateral approach was selected and the area prepped and draped in the usual sterile fashion. 1% Xylocaine was used to anesthetize the skin and soft tissues. A 19 gauge guiding needle was advanced into the lingula. Its position was confirmed with CT. Using coaxial technique, multiple core biopsies were obtained. The postprocedure images demonstrate a small pneumothorax. The patient's vital signs were stable and she denied any increase shortness of breath. A follow-up chest x-ray has been ordered. IMPRESSION: 1. CT-guided left lung biopsy as described above.
--- NOTE | 2017-06-02 15:47 | RAD ---
HISTORY: lt lung bx COMPARISON: No prior. FINDINGS: LUNGS: No active pulmonary disease. PLEURA: There is a small left-sided pneumothorax. The edge of the lung is 9 mm from the chest wall CARDIOVASCULAR: Normal. OSSEOUS STRUCTURES: No significant abnormalities. VISUALIZED UPPER ABDOMEN: Normal. OTHER FINDINGS: Dr. Garcia was notified of the finding at 3:40 p.m. IMPRESSION: Small left-sided pneumothorax
--- NOTE | 2017-06-02 17:27 | CP.PCM.HP ---
<Timbo Carroll - Last Filed: 06/02/17 18:08> History of Present Illness - History of Present Illness History of Present Illness: H&P for hospitalist service - Joselin Carroll PGY2 HPI: Patient is a 62 year old female with past medical history of breast cancer s/p left sided mastectomy (30 years ago) and chemo/radiation, reconstructive breast surgery, b/l hip replacement, pulmonary fibrosis/COPD, on home oxygen (2- 2.5 L) that presented to same day surgery for left-sided lung biopsy. Post procedure a CXR was obtained and revealed a small left-sided pneumothorax. A left-sided chest tube was subsequently placed by IR. Per chart, patient had been recently at for shortness of breath and was treated with bronchodilators, antibiotics and taper dose steroids. She was subsequently discharged and was scheduled for lung biopsy to rule out underlying malignancy. At this time, she denies chest pain, palpitations, SOB, abdominal pain, nausea, vomiting, fever, chills, cough. 12 point ROS reviewed and neg, except as noted per hpi. 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 Family history: Father: Bone Ca, Mother: Lung Ca and emphysema; Sister: breast cancer Oncologist: Dr Mack PMD: Dr. Patel Present on Admission - Present on Admission Any Indicators Present on Admission: No Past Patient History - Infectious Disease Hx of Infectious Diseases: None - Tetanus Immunizations Tetanus Immunization: Unknown - Past Medical History & Family History Past Medical History?: Yes - Past Social History Smoking Status: Never Smoked - CARDIAC Hx Pacemaker: No - PULMONARY Hx Respiratory Disorders: Yes Hx Chronic Obstructive Pulmonary Disease (COPD): Yes (bronchiectasis; pulmo fibrosis) - NEUROLOGICAL Hx Paralysis: No - HEENT Hx HEENT Problems: Yes Hx Cataracts: Yes (BILAT IOL) Hx Deafness: Yes (BILATERAL EARS DECREASED HEARING) Hx Glaucoma: No - RENAL Hx Chronic Kidney Disease: No - ENDOCRINE/METABOLIC Hx Endocrine Disorders: No - HEMATOLOGICAL/ONCOLOGICAL Hx Blood Transfusions: Yes Hx Blood Transfusion Reaction: No - INTEGUMENTARY Hx Dermatological Problems: Yes - MUSCULOSKELETAL/RHEUMATOLOGICAL Hx Musculoskeletal Disorders: Yes - GASTROINTESTINAL Hx Gastrointestinal Disorders: Yes Hx Colitis: Yes Hx Gastroesophageal Reflux: Yes - GENITOURINARY/GYNECOLOGICAL Hx Genitourinary Disorders: No - PSYCHIATRIC Hx Emotional Abuse: No Hx Physical Abuse: No Hx Substance Use: No - SURGICAL HISTORY Hx Surgeries: Yes (bilateral hip replacement,l sided mastectomy with breast reconstruction.) - ANESTHESIA Hx Anesthesia Reactions: No Hx Malignant Hyperthermia: No Meds Allergies/Adverse Reactions: Allergies Allergy/AdvReac Type Severity Reaction Status Date / Time No Known Allergies Allergy Verified 05/26/17 11:50 Physical Exam - Constitutional Appears: No Acute Distress - Head Exam Head Exam: ATRAUMATIC, NORMAL INSPECTION, NORMOCEPHALIC - Eye Exam Eye Exam: EOMI, PERRL - ENT Exam ENT Exam: Mucous Membranes Moist - Neck Exam Neck exam: Positive for: Normal Inspection - Respiratory Exam Additional comments: coarse breath sounds bilaterally left-sided chest tube in place - Cardiovascular Exam Cardiovascular Exam: RRR, +S1, +S2. absent: Gallop, JVD, Rubs - GI/Abdominal Exam GI & Abdominal Exam: Soft. absent: Distended, Firm, Guarding, Rebound, Tenderness - Neurological Exam Neurological exam: Alert, Oriented x3 - Psychiatric Exam Psychiatric exam: Normal Affect, Normal Mood - Skin Skin Exam: Dry, Intact, Normal Color, Warm Results - Vital Signs Recent Vital Signs: Last Vital Signs Temp 97.9 F 06/02/17 17:00 Pulse 97 H 06/02/17 17:00 Resp 16 06/02/17 17:00 BP 125/53 L 06/02/17 17:00 Pulse Ox 96 06/02/17 17:00 - Labs Result Diagrams: 06/02/17 11:10 06/02/17 12:00 Labs: Laboratory Results - last 24 hr 06/02/17 06/02/17 06/02/17 11:10 12:00 12:00 WBC 22.6 H D RBC 5.06 Hgb 14.5 Hct 44.6 MCV 88.1 MCH 28.7 MCHC 32.5 RDW 15.3 H Plt Count 324 MPV 9.4 Gran % 52.2 Lymph % (Auto) 38.1 H [place] % (Auto) 7.2 H Eos % (Auto) 2.3 Baso % (Auto) 0.2 Gran # 11.81 H Lymph # (Auto) 8.6 H [place] # (Auto) 1.6 H Eos # (Auto) 0.5 Baso # (Auto) 0.05 PT 12.3 INR 1.07 APTT 29.0 Sodium 142 Potassium 3.6 Chloride 101 Carbon Dioxide 33 Anion Gap 11 BUN 13 Creatinine 0.6 L Est GFR ( Amer) > 60 Est GFR (Non-Af Amer) > 60 Random Glucose 90 Calcium 9.3 Assessment & Plan - Assessment and Plan (Free Text) Plan: 62yo female with history of breast cancer s/p left sided mastectomy (30 years ago), chemo/radiation, pulmonary fibrosis/COPD, on home oxygen (2-2.5 L) presented for lung biopsy complicated by left-sided pneumothorax 1. Left-sided pneumothorax -CXR revealed small left-sided pneumothorax, ~9mm from chest wall -s/p chest tube placement by IR on continuous suction -Repeat CXR in AM -Pain control -IR consulted - Dr. Garcia 2. Pulmonary fibrosis/COPD -O2 via NC at 4L -Duoneb q2h PRN -Albuterol q6h FRANKIE -Continue singulair -Continue esbriet -Continue prednisone 20mg taper and Levaquin 500mg daily which were prescribed to her upon discharge from [facility] 3. Leukocytosis -likely secondary to steroid administration, will trend CBC -afebrile 4. History of breast ca -Continue raloxifene -Pending results of lung biopsy -Oncology consulted - Dr. Mack 5. GI/DVT prophylaxis -Protonix -SCD's, transition to lovenox tomorrow Patient seen and case discussed/reviewed with attending, Dr. Nelson <Sav Nelson - Last Filed: 06/02/17 18:47> Results - Vital Signs Recent Vital Signs: Last Vital Signs Temp 97.9 F 06/02/17 18:00 Pulse 94 H 06/02/17 18:00 Resp 18 06/02/17 18:00 BP 128/62 06/02/17 18:00 Pulse Ox 98 06/02/17 18:00 - Labs Result Diagrams: 06/02/17 11:10 06/02/17 12:00 Labs: Laboratory Results - last 24 hr 06/02/17 06/02/17 06/02/17 11:10 12:00 12:00 WBC 22.6 H D RBC 5.06 Hgb 14.5 Hct 44.6 MCV 88.1 MCH 28.7 MCHC 32.5 RDW 15.3 H Plt Count 324 MPV 9.4 Gran % 52.2 Lymph % (Auto) 38.1 H [place] % (Auto) 7.2 H Eos % (Auto) 2.3 Baso % (Auto) 0.2 Gran # 11.81 H Lymph # (Auto) 8.6 H [place] # (Auto) 1.6 H Eos # (Auto) 0.5 Baso # (Auto) 0.05 PT 12.3 INR 1.07 APTT 29.0 Sodium 142 Potassium 3.6 Chloride 101 Carbon Dioxide 33 Anion Gap 11 BUN 13 Creatinine 0.6 L Est GFR ( Amer) > 60 Est GFR (Non-Af Amer) > 60 Random Glucose 90 Calcium 9.3 Attending/Attestation - Attestation I have personally seen and examined this patient.: Yes I have fully participated in the care of the patient.: Yes I have reviewed all pertinent clinical information: Yes Notes (Text): 06/02/17 18:41 Medical record note made by the resident after discussion with my direction and input after the patient was personally seen and examined by me. I have reviewed the chart and agree that the record accurately reflects by personal performance of the history, physical exam, data review, and medical decision-making, in the course for the patient. I have also personally directed the plan of care 62 yrs old female with PMH of Pulmonary Fibrosis,COPD,Breast cancer,SP left Mastectomy, Chronic hypoxic Respiratory failure on home oxygen, was recently admitted at [facility] for worsening dyspena , treated with IV steroid and antibiotics, was discharged yesterday, had out patient lung biospy by IR, developed left sided Pneumothorax after the procedure, she is SP chest tube placement by IR, stable on base line hypoxia.We will monitor patient in telemetry, will repeat chest X ray in the morning. Leukocytosis is likely due to steroid, will monitor. Management plan was discussed in detail with patient.Education was provided.
[2017-06-02] MEDS ORDERED: Amylase/Lipase/Protease 5,000 Units ECC PO SCH (18:00)
[2017-06-02] MEDS ORDERED: Albuterol-Ipratrop 3 mg / 0.5 (3 ml) UD IH PRN (18:06)
[2017-06-02] MEDS: Sodium Chloride 0.45% 1,000 ML IV SCH (19:00)
[2017-06-02] MEDS: Albuterol 0.083% Inhal Sol (2.5 mg/3 mL) UD IH SCH (19:48)
[2017-06-02] MEDS: Oxycodone/Acetaminophen 5/325 mg Tab PO PRN (21:59)
[2017-06-03 00:44] VITALS: O2SAT 98
[2017-06-03] MEDS: Albuterol 0.083% Inhal Sol (2.5 mg/3 mL) UD IH SCH ×3 (01:31→13:51)
[2017-06-03 06:01] LABS: BASO # 0.03 K/mm3 (0.0-2.0); BASO % 0.2 % (0.0-3.0); EOS # 0.7 (0.0-0.7); EOS % 5.2 % (1.5-5.0); GRAN # 6.14 (1.4-6.5); GRAN % 44.5 % (50.0-68.0); LYMPH # 5.6 (1.2-3.4); MEAN CELL VOLUME 88.5 fl (80.0-105.0); MEAN CORPUSCULAR HEMOGLOBIN 28.2 pg (25.0-35.0); MEAN CORPUSCULAR HGB CONC 31.9 g/dl (31.0-37.0); MEAN PLATELET VOLUME 8.9 fl (7.0-11.0); MONO # 1.3 (0.1-0.6); MONO % 9.1 % (1.0-6.0); RBC 4.43 10^6/uL (3.5-6.1); RED CELL DISTRIBUTION WIDTH 15.3 % (11.5-14.5); WHITE BLOOD COUNT 13.8 10^3/ul (4.5-11.0)
[2017-06-03 06:14] LABS: HEMOGLOBIN 12.5 g/dL (12.0-16.0)
[2017-06-03 06:28] VITALS: RESP 20
[2017-06-03] MEDS ORDERED: Pantoprazole 40 mg EC Tab PO SCH (07:30)
[2017-06-03 07:51] LABS: ALB/GLOB RATIO 0.8 (1.1-1.8); ALBUMIN 2.8 g/dL (3.0-4.8); ALT/SGPT 29 U/L (7-56); AST/SGOT 30 U/L (14-36); BLOOD UREA NITROGEN 11 mg/dL (7-21); CALCIUM 8.9 mg/dL (8.4-10.5); GFR AFRICAN-AMERICAN > 60; GFR NON-AFRICAN AMERICAN > 60
--- NOTE | 2017-06-03 08:56 | CP.PCM.PN ---
<Leticia Mills - Last Filed: 06/04/17 08:17> Subjective - Date & Time of Evaluation Date of Evaluation: 06/03/17 Time of Evaluation: 08:53 - Subjective Subjective: Progress note for Dr. Baez Patient seen and examined at bedside. no acute events overnight. Patient states she has a little bit of irritation from the chest tube and coughing since insertion of chest tube, but has no chest pain, shortness of breath, dizziness, fever, problems with bowel movements, urinary difficulty. left sided chest tube attached to continuous wall suction. Objective - Vital Signs/Intake and Output Vital Signs (last 24 hours): Temp Pulse Resp BP Pulse Ox 97.9 F 76 20 124/74 98 06/03/17 06:00 06/03/17 06:00 06/03/17 06:00 06/03/17 06:00 06/03/17 06:00 Intake and Output: 06/03/17 06/03/17 06:59 18:59 Intake Total 760 Output Total 335 Balance 425 - Medications Medications: Current Medications Acetaminophen (Tylenol 325mg Tab) 650 mg PO Q4 PRN PRN Reason: Pain, Mild (1-3) Acetaminophen (Tylenol 325mg Tab) 650 mg PO Q4H PRN PRN Reason: Pain, Mild (1-3) Albuterol Sulfate (Albuterol 0.083% Inhal Cate (2.5 Mg/3 Ml) Ud) 2.5 mg IH [id number] [facility] Last Admin: 06/03/17 07:51 Dose: 2.5 mg Albuterol/Ipratropium (Duoneb 3 Mg/0.5 Mg (3 Ml) Ud) 3 ml IH Q2H PRN PRN Reason: Shortness of Breath Amylase (Pancrease 42879 U-[id number] [id number] U) 5,000 unit PO TID [facility] Gabapentin (Neurontin) 300 mg PO BID [facility] PRN Reason: Protocol Last Admin: 06/02/17 22:02 Dose: 300 mg Sodium Chloride (Sodium Chloride 0.45%) 1,000 mls @ 80 mls/hr IV .[id number] [facility] Last Admin: 06/02/17 19:00 Dose: 80 mls/hr Levofloxacin (Levaquin) 500 mg PO DAILY [facility] PRN Reason: Protocol Montelukast Sodium (Singulair) 10 mg PO DAILY [facility] Non-Formulary Medication (Acetylcysteine 10% [Acetylcysteine 10%]) 1 aer IH BID [facility] Non-Formulary Medication (Pirfenidone [Esbriet]) 3 tab PO TID [facility] Non-Formulary Medication (Riboflavin [Vitamin B-2]) 100 mg PO DAILY [facility] Ondansetron HCl (Zofran Inj) 4 mg IVP Q6H PRN PRN Reason: Nausea/Vomiting Oxycodone/Acetaminophen (Percocet 5/325 Mg Tab) 1 tab PO Q4H PRN PRN Reason: Pain, moderate (4-7) Stop: 06/05/17 14:06 Oxycodone/Acetaminophen (Percocet 5/325 Mg Tab) 1 tab PO Q6H PRN PRN Reason: Pain, moderate (4-7) Stop: 06/05/17 16:57 Last Admin: 06/02/17 21:59 Dose: 1 tab Pantoprazole Sodium (Protonix Ec Tab) 40 mg PO ACB [facility] Last Admin: 06/03/17 08:25 Dose: 40 mg Prednisone (Prednisone Tab) 20 mg PO DAILY [facility] Raloxifene HCl (Evista) 60 mg PO DAILY [facility] - Labs Labs: 06/03/17 05:30 06/03/17 05:30 PT 12.3 SECONDS (9.4-12.5) 06/02/17 12:00 INR 1.07 (0.93-1.08) 06/02/17 12:00 APTT 29.0 Seconds (25.1-36.5) 06/02/17 12:00 - Constitutional Appears: Non-toxic, No Acute Distress - Head Exam Head Exam: ATRAUMATIC, NORMAL INSPECTION, NORMOCEPHALIC - Eye Exam Eye Exam: EOMI, Normal appearance Pupil Exam: NORMAL ACCOMODATION. absent: Unequal - ENT Exam ENT Exam: Mucous Membranes Moist - Respiratory Exam Respiratory Exam: Clear to Ausculation Bilateral, NORMAL BREATHING PATTERN. absent: Accessory Muscle Use, Chest Wall Tenderness Additional comments: left sided chest tube, with dressings clean, dry, intact - Cardiovascular Exam Cardiovascular Exam: REGULAR RHYTHM, +S1, +S2 - GI/Abdominal Exam GI & Abdominal Exam: Soft, Normal Bowel Sounds - Extremities Exam Extremities Exam: Full ROM, Normal Inspection. absent: Pedal Edema - Back Exam Back Exam: Full ROM - Neurological Exam Neurological Exam: Alert, Awake, CN II-XII Intact, Normal Gait, Oriented x3 - Psychiatric Exam Psychiatric exam: Normal Affect, Normal Mood - Skin Skin Exam: Dry, Intact, Normal Color, Warm Assessment and Plan - Assessment and Plan (Free Text) Assessment: 62F with history of breast cancer s/p left sided mastectomy (30 years ago), chemo/radiation, pulmonary fibrosis/COPD, on home oxygen (2-2.5 L), presents for lung biopsy and was found to have a left-sided pneumothorax. Patient had a chest tube placed by IR on continuous suction. 1. Left-sided pneumothorax -CXR revealed small left-sided pneumothorax, ~9mm from chest wall -s/p chest tube placement by IR on continuous suction -Repeat CXR in AM: resolved pneumothorax -Pain control -IR consult: Dr. Garcia 2. Pulmonary fibrosis/COPD -O2 via NC at 4L -Duoneb q2h PRN -Albuterol q6h FRANKIE -Continue singulair -Continue esbriet -Continue prednisone 20mg taper and Levaquin 500mg daily which were prescribed to her upon discharge from [facility] 3. Leukocytosis -likely secondary to steroid administration, will trend CBC -afebrile 4. History of breast ca -Continue raloxifene -Pending results of lung biopsy -Oncology consulted - Dr. Mack Continue home raloxifene Chest tube under IR management Pain control Pulmonology Consulted by Heme/onc: Dr. Carpenter 5. GI/DVT prophylaxis -Protonix -SCD's, transition to lovenox tomorrow possible Discharge today if chest tube is removed and patient tolerates procedure. discussed with Dr. Sasha Mills DO PGY1 <Roberto Baez - Last Filed: 06/04/17 08:51> Objective - Vital Signs/Intake and Output Vital Signs (last 24 hours): Temp Pulse Resp BP Pulse Ox 98.4 F 113 H 20 112/69 98 06/03/17 12:00 06/03/17 14:00 06/03/17 12:00 06/03/17 12:00 06/03/17 06:00 - Labs Labs: 06/03/17 05:30 06/03/17 05:30 PT 12.3 SECONDS (9.4-12.5) 06/02/17 12:00 INR 1.07 (0.93-1.08) 06/02/17 12:00 APTT 29.0 Seconds (25.1-36.5) 06/02/17 12:00 Attending/Attestation - Attestation I have personally seen and examined this patient.: Yes I have fully participated in the care of the patient.: Yes I have reviewed all pertinent clinical information, including history, physical exam and plan: Yes Notes (Text): 06/03/17 62 year old female with past medical history of breast cancer s/p left mastectomy, chemo/radiation, pulmonary fibrosis and COPD who presented for lung biopsy complicated with left sided pneumothorax. Chest tube was placed by IR. Repeat CXR shows resolution of pneumothorax. Plan is for possible d/c of chest tube today followed by discharge home with outpatient follow up. Patient is on po steroids and antibiotics. Roberto Baez MD Hospitalist.
--- NOTE | 2017-06-03 09:13 | RAD ---
HISTORY: lt PTX COMPARISON: 06/02/2017 FINDINGS: LUNGS: No active pulmonary disease. PLEURA: There is a left-sided chest tube in place. No evidence of pneumothorax CARDIOVASCULAR: Normal. OSSEOUS STRUCTURES: No significant abnormalities. VISUALIZED UPPER ABDOMEN: Normal. OTHER FINDINGS: None. IMPRESSION: No evidence of pneumothorax following chest tube placement
--- NOTE | 2017-06-03 09:35 | CT ---
PROCEDURE: CT-guided left chest tube placement HISTORY: Recent left upper lobe lung biopsy. Enlarging left upper lobe pneumothorax with shortness of breath. Needs chest tube PHYSICIAN(S): Ck Garcia MD. TECHNIQUE: The relative risks and indications for the procedure were explained to the patient and her and informed consent obtained. The patient was placed in a supine position on the CT scanner and preliminary images through the upper lungs performed. This revealed a small to moderate enlarging pneumothorax. A left anterior approach was selected the area prepped and draped usual sterile fashion. Conscious sedation monitoring were provided throughout the procedure by a nurse. 1 percent xylocaine was used to anesthetize the skin and soft tissues. Under CT guidance a 19 gauge needle was advanced into the left pneumothorax. Its position was confirmed with CT imaging an aspiration of air. A 0.035 J wire was coiled in left pleural space. Sequential dilatation was performed with subsequent placement of 12 Hebrew pigtail chest tube on the left anteriorly. The chest tube was secured and placed to 30 cm H2O low continuous suction. Completion images showed resolution of the pneumothorax. IMPRESSION: 1. CT-guided left chest tube placement as described above.
[2017-06-03] MEDS ORDERED: levoFLOXacin 500 MG TAB PO SCH (10:00)
[2017-06-03] MEDS ORDERED: RIBOFLAVIN 100 MG PO SCH (10:00)
--- NOTE | 2017-06-03 10:34 | CP.PCM.CON ---
History of Present Illness - History of Present Illness History of Present Illness: Louis Ramachandran D.O. PGY-2, Internal Medicine Resident, Hem/Onc Consultation Note 62 year old female with a PMH of breast cancer s/p left sided mastectomy s/p chemo/RT s/p breast reconstruction, pulmonary fibrosis/COPD on home oxygen 2-3L who presented originally to [facility] for lung biopsy and subsequently developed a pneumothorax and is currently admitted under the medical service. Hem/Onc consultation was requested. Patient was seen and examined at bedside. Somewhat SOB but states mostly from coughing since the chest tube. Sometimes light frothy white sputum. Cough drops help. Not too much chest discomfort from the tube site. Past Patient History - Infectious Disease Hx of Infectious Diseases: None - Tetanus Immunizations Tetanus Immunization: Unknown - Past Medical History & Family History Past Medical History?: Yes - Past Social History Smoking Status: Never Smoked - CARDIAC Hx Cardiac Disorders: Yes Hx Congestive Heart Failure: Yes - PULMONARY Hx Respiratory Disorders: Yes Hx Chronic Obstructive Pulmonary Disease (COPD): Yes Hx Pneumonia: Yes - NEUROLOGICAL Hx Neurological Disorder: No - HEENT Hx HEENT Problems: Yes Hx Cataracts: Yes - RENAL Hx Chronic Kidney Disease: No - ENDOCRINE/METABOLIC Hx Endocrine Disorders: No - HEMATOLOGICAL/ONCOLOGICAL Hx Blood Disorders: Yes Hx Cancer: Yes (breast) - INTEGUMENTARY Hx Dermatological Problems: No - MUSCULOSKELETAL/RHEUMATOLOGICAL Hx Musculoskeletal Disorders: Yes Hx Arthritis: Yes Hx Falls: No Hx Osteoporosis: Yes - GASTROINTESTINAL Hx Gastrointestinal Disorders: Yes Hx Gastroesophageal Reflux: Yes - GENITOURINARY/GYNECOLOGICAL Hx Genitourinary Disorders: No - PSYCHIATRIC Hx Psychophysiologic Disorder: No Hx Substance Use: No - SURGICAL HISTORY Hx Surgeries: Yes Hx Cholecystectomy: Yes Hx Mastectomy: Yes (left) Other/Comment: bilateral hip replacement - ANESTHESIA Hx Anesthesia Reactions: No Hx Malignant Hyperthermia: No Meds Allergies/Adverse Reactions: Allergies Allergy/AdvReac Type Severity Reaction Status Date / Time No Known Allergies Allergy Verified 05/26/17 11:50 - Medications Medications: Current Medications Acetaminophen (Tylenol 325mg Tab) 650 mg PO Q4 PRN PRN Reason: Pain, Mild (1-3) Acetaminophen (Tylenol 325mg Tab) 650 mg PO Q4H PRN PRN Reason: Pain, Mild (1-3) Albuterol Sulfate (Albuterol 0.083% Inhal Cate (2.5 Mg/3 Ml) Ud) 2.5 mg IH [id number] [facility] Last Admin: 06/03/17 07:51 Dose: 2.5 mg Albuterol/Ipratropium (Duoneb 3 Mg/0.5 Mg (3 Ml) Ud) 3 ml IH Q2H PRN PRN Reason: Shortness of Breath Amylase (Pancrease [id number] [id number] U) 5,000 unit PO TID [facility] Gabapentin (Neurontin) 300 mg PO BID [facility] PRN Reason: Protocol Last Admin: 06/02/17 22:02 Dose: 300 mg Sodium Chloride (Sodium Chloride 0.45%) 1,000 mls @ 80 mls/hr IV .[id number] [facility] Last Admin: 06/02/17 19:00 Dose: 80 mls/hr Levofloxacin (Levaquin) 500 mg PO DAILY [facility] PRN Reason: Protocol Montelukast Sodium (Singulair) 10 mg PO DAILY [facility] Non-Formulary Medication (Acetylcysteine 10% [Acetylcysteine 10%]) 1 aer IH BID [facility] Non-Formulary Medication (Pirfenidone [Esbriet]) 3 tab PO TID [facility] Non-Formulary Medication (Riboflavin [Vitamin B-2]) 100 mg PO DAILY [facility] Ondansetron HCl (Zofran Inj) 4 mg IVP Q6H PRN PRN Reason: Nausea/Vomiting Oxycodone/Acetaminophen (Percocet 5/325 Mg Tab) 1 tab PO Q4H PRN PRN Reason: Pain, moderate (4-7) Stop: 06/05/17 14:06 Oxycodone/Acetaminophen (Percocet 5/325 Mg Tab) 1 tab PO Q6H PRN PRN Reason: Pain, moderate (4-7) Stop: 06/05/17 16:57 Last Admin: 06/02/17 21:59 Dose: 1 tab Pantoprazole Sodium (Protonix Ec Tab) 40 mg PO ACB [facility] Last Admin: 06/03/17 08:25 Dose: 40 mg Prednisone (Prednisone Tab) 20 mg PO DAILY [facility] Raloxifene HCl (Evista) 60 mg PO DAILY [facility] Physical Exam - Constitutional Appears: Non-toxic, Chronically Ill - Head Exam Head Exam: ATRAUMATIC, NORMOCEPHALIC - Eye Exam Eye Exam: EOMI, PERRL - ENT Exam ENT Exam: Mucous Membranes Moist, Normal Oropharynx - Neck Exam Neck exam: Positive for: Normal Inspection - Respiratory Exam Respiratory Exam: Clear to Auscultation Bilateral, Wheezes Additional comments: anterior chest tube to left thorax, small amount of sangenous drainage - Cardiovascular Exam Cardiovascular Exam: Tachycardia, +S1, +S2 - GI/Abdominal Exam GI & Abdominal Exam: Normal Bowel Sounds, Soft. absent: Tenderness - Extremities Exam Extremities exam: Negative for: calf tenderness - Neurological Exam Neurological exam: Alert, Oriented x3 - Psychiatric Exam Psychiatric exam: Normal Affect - Skin Skin Exam: Dry, Warm Results - Vital Signs Recent Vital Signs: Last Vital Signs Temp 97.9 F 06/03/17 06:00 Pulse 76 06/03/17 06:00 Resp 20 06/03/17 06:00 BP 124/74 06/03/17 06:00 Pulse Ox 98 06/03/17 06:00 - Labs Result Diagrams: 06/03/17 05:30 06/03/17 05:30 Labs: Laboratory Results - last 24 hr 06/02/17 06/02/17 06/02/17 11:10 12:00 12:00 WBC 22.6 H D RBC 5.06 Hgb 14.5 Hct 44.6 MCV 88.1 MCH 28.7 MCHC 32.5 RDW 15.3 H Plt Count 324 MPV 9.4 Gran % 52.2 Lymph % (Auto) 38.1 H [place] % (Auto) 7.2 H Eos % (Auto) 2.3 Baso % (Auto) 0.2 Gran # 11.81 H Lymph # (Auto) 8.6 H [place] # (Auto) 1.6 H Eos # (Auto) 0.5 Baso # (Auto) 0.05 PT 12.3 INR 1.07 APTT 29.0 Sodium 142 Potassium 3.6 Chloride 101 Carbon Dioxide 33 Anion Gap 11 BUN 13 Creatinine 0.6 L Est GFR ( Amer) > 60 Est GFR (Non-Af Amer) > 60 Random Glucose 90 Calcium 9.3 Total Bilirubin AST ALT Alkaline Phosphatase Total Protein Albumin Globulin Albumin/Globulin Ratio 06/03/17 06/03/17 05:30 05:30 WBC 13.8 H D RBC 4.43 Hgb 12.5 D Hct 39.2 MCV 88.5 MCH 28.2 MCHC 31.9 RDW 15.3 H Plt Count 270 MPV 8.9 Gran % 44.5 L Lymph % (Auto) 41.0 H [place] % (Auto) 9.1 H Eos % (Auto) 5.2 H Baso % (Auto) 0.2 Gran # 6.14 Lymph # (Auto) 5.6 H [place] # (Auto) 1.3 H Eos # (Auto) 0.7 Baso # (Auto) 0.03 PT INR APTT Sodium 137 Potassium 3.8 Chloride 101 Carbon Dioxide 30 Anion Gap 10 BUN 11 Creatinine 0.5 L Est GFR ( Amer) > 60 Est GFR (Non-Af Amer) > 60 Random Glucose 82 Calcium 8.9 Total Bilirubin 0.5 AST 30 ALT 29 Alkaline Phosphatase 54 Total Protein 6.0 Albumin 2.8 L Globulin 3.3 Albumin/Globulin Ratio 0.8 L Assessment & Plan - Assessment and Plan (Free Text) Assessment: 62 year old female with a PMH of breast cancer s/p left sided mastectomy s/p chemo/RT s/p breast reconstruction, pulmonary fibrosis/COPD on home oxygen 2-3L who presented originally to [facility] for lung biopsy and subsequently developed a pneumothorax and is currently admitted under the medical service. Hem/Onc consultation was requested. Plan: Breast cancer on raloxifene COPD/Pulmonary fibrosis on home O2 Pneumothorax s/p chest tube Leukocytosis Continue home raloxifene Chest tube under IR management Pain control Leukocytosis more likely 2/2 [address] use [address] Dr[address] Carpenter pulmonlogy Discussed with attending physician - Date & Time Date: 06/03/17 Time: 07:20
[2017-06-03] MEDS: Amylase/Lipase/Protease 5,000 Units ECC PO SCH ×3 (10:51→17:16)
[2017-06-03] MEDS: PIRFENIDONE PO SCH ×3 (10:52→17:17)
[2017-06-03] MEDS: ACETYLCYSTEINE 10% IH SCH ×2 (10:52→17:17)
[2017-06-03 12:27] VITALS: BP 112/69; TEMP 98.4
[2017-06-03] MEDS: Sodium Chloride 0.45% 1,000 ML IV SCH (12:30)
--- NOTE | 2017-06-03 12:52 | RAD ---
HISTORY: left chest tube COMPARISON: Earlier same day FINDINGS: LUNGS: Bilateral infiltrates. No evidence of recurrent pneumothorax. Left-sided chest tube in place PLEURA: No significant pleural effusion identified, no pneumothorax apparent. CARDIOVASCULAR: Normal. OSSEOUS STRUCTURES: No significant abnormalities. VISUALIZED UPPER ABDOMEN: Normal. OTHER FINDINGS: None. IMPRESSION: Bilateral infiltrates. No evidence of recurrent pneumothorax. Left-sided chest tube in place
[2017-06-03] MEDS: Oxycodone/Acetaminophen 5/325 mg Tab PO PRN (14:27)
[2017-06-03 15:35] VITALS: PULSE 113
--- NOTE | 2017-06-04 07:59 | CP.PCM.DIS ---
<Leticia Mills - Last Filed: 06/04/17 07:57> Provider - Provider Attending physician: Roberto Baez MD Consults: Dr Garcia Time Spent in preparation of Discharge (in minutes): 35 Hospital Course - Lab Results Lab Results: Most Recent Lab Values WBC 13.8 10^3/ul (4.5-11.0) H D 06/03/17 05:30 RBC 4.43 10^6/uL (3.5-6.1) 06/03/17 05:30 Hgb 12.5 g/dL (12.0-16.0) D 06/03/17 05:30 Hct 39.2 % (36.0-48.0) 06/03/17 05:30 MCV 88.5 fl (80.0-105.0) 06/03/17 05:30 MCH 28.2 pg (25.0-35.0) 06/03/17 05:30 MCHC 31.9 g/dl (31.0-37.0) 06/03/17 05:30 RDW 15.3 % (11.5-14.5) H 06/03/17 05:30 Plt Count 270 10^3/uL (120.0-450.0) 06/03/17 05:30 MPV 8.9 fl (7.0-11.0) 06/03/17 05:30 Gran % 44.5 % (50.0-68.0) L 06/03/17 05:30 Lymph % (Auto) 41.0 % (22.0-35.0) H 06/03/17 05:30 [place] % (Auto) 9.1 % (1.0-6.0) H 06/03/17 05:30 Eos % (Auto) 5.2 % (1.5-5.0) H 06/03/17 05:30 Baso % (Auto) 0.2 % (0.0-3.0) 06/03/17 05:30 Gran # 6.14 (1.4-6.5) 06/03/17 05:30 Lymph # (Auto) 5.6 (1.2-3.4) H 06/03/17 05:30 [place] # (Auto) 1.3 (0.1-0.6) H 06/03/17 05:30 Eos # (Auto) 0.7 (0.0-0.7) 06/03/17 05:30 Baso # (Auto) 0.03 K/mm3 (0.0-2.0) 06/03/17 05:30 PT 12.3 SECONDS (9.4-12.5) 06/02/17 12:00 INR 1.07 (0.93-1.08) 06/02/17 12:00 APTT 29.0 Seconds (25.1-36.5) 06/02/17 12:00 Sodium 137 mmol/L (132-148) 06/03/17 05:30 Potassium 3.8 mmol/L (3.6-5.0) 06/03/17 05:30 Chloride 101 mmol/L (98-107) 06/03/17 05:30 Carbon Dioxide 30 mmol/L (21-33) 06/03/17 05:30 Anion Gap 10 (10-20) 06/03/17 05:30 BUN 11 mg/dL (7-21) 06/03/17 05:30 Creatinine 0.5 mg/dl (0.7-1.2) L 06/03/17 05:30 Est GFR ( Amer) > 60 06/03/17 05:30 Est GFR (Non-Af Amer) > 60 06/03/17 05:30 Random Glucose 82 mg/dL (70-110) 06/03/17 05:30 Calcium 8.9 mg/dL (8.4-10.5) 06/03/17 05:30 Total Bilirubin 0.5 mg/dL (0.2-1.3) 06/03/17 05:30 AST 30 U/L (14-36) 06/03/17 05:30 ALT 29 U/L (7-56) 06/03/17 05:30 Alkaline Phosphatase 54 U/L (38-126) 06/03/17 05:30 Total Protein 6.0 g/dL (5.8-8.3) 06/03/17 05:30 Albumin 2.8 g/dL (3.0-4.8) L 06/03/17 05:30 Globulin 3.3 gm/dL 06/03/17 05:30 Albumin/Globulin Ratio 0.8 (1.1-1.8) L 06/03/17 05:30 - Hospital Course Hospital Course: HPI: Patient is a 62 year old female with past medical history of breast cancer s/p left sided mastectomy (30 years ago) and chemo/radiation, reconstructive breast surgery, b/l hip replacement, pulmonary fibrosis/COPD, on home oxygen (2- 2.5 L) that presented to same day surgery for left-sided lung biopsy. Post procedure a CXR was obtained and revealed a small left-sided pneumothorax. A left-sided chest tube was subsequently placed by IR. Per chart, patient had been recently at [facility] for shortness of breath and was treated with bronchodilators, antibiotics and taper dose steroids. She was subsequently discharged and was scheduled for lung biopsy to rule out underlying malignancy. At this time, she denies chest pain, palpitations, SOB, abdominal pain, nausea, vomiting, fever, chills, cough. Hospital course Patient seen and examined at bedside. no acute events overnight. Patient states she has a little bit of irritation from the chest tube and coughing since insertion of chest tube, but has no chest pain, shortness of breath, dizziness, fever, problems with bowel movements, urinary difficulty. left sided chest tube attached to continuous wall suction. Chest tube removed due to cxr showing resolved pneumothorax. Patient was discharged with instructions to: -Please resume your antibiotic and steroid taper that you were given when you were discharged from [facility] and finish both -Please resume your home medications as previously prescribed -Please follow up with your Primary MD within 1 week -Please return to the hospital if you experience new or concerning symptoms - Date & Time of H&P Date of H&P: 06/03/17 Time of H&P: 18:40 Discharge Exam - Head Exam Head Exam: ATRAUMATIC, NORMAL INSPECTION, NORMOCEPHALIC - Eye Exam Eye Exam: EOMI, Normal appearance - ENT Exam ENT Exam: Mucous Membranes Moist - Neck Exam Neck exam: Full Rom - Respiratory Exam Respiratory Exam: Clear to PA & Lateral, NORMAL BREATHING PATTERN. absent: Accessory Muscle Use, Decreased Breath Sounds, Rales, Rhonchi, Respiratory Distress - Cardiovascular Exam Cardiovascular Exam: REGULAR RHYTHM, +S1, +S2. absent: Bradycardia, Tachycardia - GI/Abdominal Exam GI & Abdominal Exam: Normal Bowel Sounds. absent: Firm, Mass, Unremarkable - Extremities Exam Extremities exam: full ROM - Neurological Exam Neurological exam: Alert, CN II-XII Intact, Normal Gait, Oriented x3 - Skin Skin Exam: Dry, Intact, Normal Color, Warm Discharge Plan - Follow Up Plan Condition: GOOD Disposition: HOME/ ROUTINE Instructions: Heart Healthy Diet, Pneumothorax (Collapsed Lung) (DC) Additional Instructions: -Please resume your antibiotic and steroid taper that you were given when you were discharged from [facility] and finish both -Please resume your home medications as previously prescribed -Please follow up with your Primary MD within 1 week -Please return to the hospital if you experience new or concerning symptoms <Roberto Baez - Last Filed: 06/04/17 08:53> Provider - Provider Attending physician: Roberto Baez MD Hospital Course - Lab Results Lab Results: Most Recent Lab Values WBC 13.8 10^3/ul (4.5-11.0) H D 06/03/17 05:30 RBC 4.43 10^6/uL (3.5-6.1) 06/03/17 05:30 Hgb 12.5 g/dL (12.0-16.0) D 06/03/17 05:30 Hct 39.2 % (36.0-48.0) 06/03/17 05:30 MCV 88.5 fl (80.0-105.0) 06/03/17 05:30 MCH 28.2 pg (25.0-35.0) 06/03/17 05:30 MCHC 31.9 g/dl (31.0-37.0) 06/03/17 05:30 RDW 15.3 % (11.5-14.5) H 06/03/17 05:30 Plt Count 270 10^3/uL (120.0-450.0) 06/03/17 05:30 MPV 8.9 fl (7.0-11.0) 06/03/17 05:30 Gran % 44.5 % (50.0-68.0) L 06/03/17 05:30 Lymph % (Auto) 41.0 % (22.0-35.0) H 06/03/17 05:30 [place] % (Auto) 9.1 % (1.0-6.0) H 06/03/17 05:30 Eos % (Auto) 5.2 % (1.5-5.0) H 06/03/17 05:30 Baso % (Auto) 0.2 % (0.0-3.0) 06/03/17 05:30 Gran # 6.14 (1.4-6.5) 06/03/17 05:30 Lymph # (Auto) 5.6 (1.2-3.4) H 06/03/17 05:30 [place] # (Auto) 1.3 (0.1-0.6) H 06/03/17 05:30 Eos # (Auto) 0.7 (0.0-0.7) 06/03/17 05:30 Baso # (Auto) 0.03 K/mm3 (0.0-2.0) 06/03/17 05:30 PT 12.3 SECONDS (9.4-12.5) 06/02/17 12:00 INR 1.07 (0.93-1.08) 06/02/17 12:00 APTT 29.0 Seconds (25.1-36.5) 06/02/17 12:00 Sodium 137 mmol/L (132-148) 06/03/17 05:30 Potassium 3.8 mmol/L (3.6-5.0) 06/03/17 05:30 Chloride 101 mmol/L (98-107) 06/03/17 05:30 Carbon Dioxide 30 mmol/L (21-33) 06/03/17 05:30 Anion Gap 10 (10-20) 06/03/17 05:30 BUN 11 mg/dL (7-21) 06/03/17 05:30 Creatinine 0.5 mg/dl (0.7-1.2) L 06/03/17 05:30 Est GFR ( Amer) > 60 06/03/17 05:30 Est GFR (Non-Af Amer) > 60 06/03/17 05:30 Random Glucose 82 mg/dL (70-110) 06/03/17 05:30 Calcium 8.9 mg/dL (8.4-10.5) 06/03/17 05:30 Total Bilirubin 0.5 mg/dL (0.2-1.3) 06/03/17 05:30 AST 30 U/L (14-36) 06/03/17 05:30 ALT 29 U/L (7-56) 06/03/17 05:30 Alkaline Phosphatase 54 U/L (38-126) 06/03/17 05:30 Total Protein 6.0 g/dL (5.8-8.3) 06/03/17 05:30 Albumin 2.8 g/dL (3.0-4.8) L 06/03/17 05:30 Globulin 3.3 gm/dL 06/03/17 05:30 Albumin/Globulin Ratio 0.8 (1.1-1.8) L 06/03/17 05:30 Attending/Attestation - Attestation I have personally seen and examined this patient.: Yes I have fully participated in the care of the patient.: Yes I have reviewed all pertinent clinical information, including history, physical exam and plan: Yes Notes (Text): 06/03/17 62 year old female with past medical history of breast cancer s/p left mastectomy, chemo/radiation, pulmonary fibrosis and COPD who presented for lung biopsy complicated with left sided pneumothorax. Chest tube was placed by IR. Repeat CXR shows resolution of pneumothorax and chest tube was later discontinued. Patient is discharged home today on po steroids and antibiotics. Follow up with pmd and hematology/oncology for biopsy results. Follow up with pulmonary. Roberto Baez MD Hospitalist.
--- NOTE | 2017-06-04 11:40 | CON ---
DATE: 06/03/2017 PULMONARY CONSULT REFERRING PHYSICIAN: Ck Garcia MD REASON FOR CONSULTATION: Chronic obstructive lung disease, status post lung biopsy. HISTORY OF PRESENT ILLNESS: This is a 62 years old female with known history of breast cancer in the past, history of radiation therapy, history of mastectomy, been on chemotherapy, history of breast reconstruction surgery, chronic obstructive lung disease, diagnosed with pulmonary fibrosis, came in as an outpatient for same day procedure for lung biopsy. Post lung biopsy, had a pneumothorax. Presently sitting up in a chair, unremarkable, feels okay, mild residual cough. No nausea or vomiting, no diarrhea, leg pain or leg swelling. PAST MEDICAL HISTORY: As per history of present illness. ALLERGIES: NONE KNOWN. SOCIAL HISTORY: Nonsmoker, nondrinker. FAMILY HISTORY: No significant cardiopulmonary disease reported. MEDICATIONS: She was on Mucomyst inhaler twice a day, DuoNeb q.6 hour, Evista 60 mg daily, Levaquin 500 mg daily, Neurontin 300 mg twice a day, amylase pancreas 5000 units 3 times a day, Percocet p.r.n. basis, pirfenidone 3 tabs 3 times a day, prednisone 20 mg daily, Protonix 40 mg daily, vitamin B2 of 100 mg daily, Singulair 10 mg daily, IV fluid of normal saline 80 mL per hour, Tylenol p.r.n., Zofran p.r.n. basis. REVIEW OF SYSTEMS: No headache, no rhinitis. Mild cough and shortness of breath. No nausea. No vomiting, diarrhea. No leg swelling or leg swelling. PHYSICAL EXAMINATION GENERAL: Sitting up in chair, in no acute distress. VITAL SIGNS: Temperature 98, heart rate 95, respiratory rate 20, blood pressure 112/69, pulse ox 98% on nasal cannula. HEENT: Moist mucous membrane. Crowded airway. NECK: Supple. No JVD. LUNGS: Have bilateral scattered rhonchi. HEART: S1 and S2. ABDOMEN: Soft, nontender. No organomegaly. EXTREMITIES: There is no edema. NEUROLOGIC: Awake, alert and follows simple commands. LABORATORY DATA: Shows hemoglobin 12.5, hematocrit 39.2, WBC 13.8, platelet is 270. INR 1.07. PTT 29. Sodium 137, potassium 3.8, chloride 101, bicarbonate 30, BUN 11, creatinine 0.5, calcium 8.9 and total bilirubin is 0.5, AST 30, ALT 29, alkaline phosphatase is 54, and albumin 2.8. Chest x-ray, which was done this morning showed no evidence of pneumothorax after placing chest tube in. IMPRESSION AND PLAN: Chronic obstructive lung disease, probably pulmonary fibrosis, could be radiation-induced pneumonitis, chronic obstructive pulmonary disease, history of breast cancer status post biopsy, and have a pneumothorax, requiring chest tube, which has been removed and the patient is asymptomatic, being discharged home. Need to follow up lung biopsy; if nondiagnostic, may need further workup including open lung biopsy. Spoke with the patient's at bedside. All the questions answered. Sav Carpenter MD
== END 2017-06-03 19:08 | disposition home or self-care (01) ==
LOC: SDS 10:48 → 2RNO 16:25 → SDS 06-03 19:08
PROVIDERS: ATTEND Internal Medicine
DX: J84.10 Pulmonary fibrosis, unspecified (principal); J95.811 Postprocedural pneumothorax; J96.11 Chronic respiratory failure with hypoxia; J44.9 Chronic obstructive pulmonary disease, unspecified; D72.829 Elevated white blood cell count, unspecified; Z99.81 Dependence on supplemental oxygen; Z85.3 Personal history of malignant neoplasm of breast; Y84.8 Other medical procedures as the cause of abnormal reaction of the patient, or of later complication, without mention of misadventure at the time of the procedure; Z90.12 Acquired absence of left breast and nipple; Z96.643 Presence of artificial hip joint, bilateral; Z92.21 Personal history of antineoplastic chemotherapy; Z92.3 Personal history of irradiation
CPT/HCPCS: 32405; 32555; 36415 ×2; 71045 ×2; 77012; 80048; 80053; 85025 ×2; 85610; 85730; 88305; 94640 ×3; J2250; J2405; J3010; J7030 ×2; J7120